=== PATIENT | male | born 1955 | race Caucasian/White ===

== ENCOUNTER 2023-01-07 08:42 | Outpatient (CLI) | payer BC, SELFPAY ==
[2023-01-07 19:34] LABS: Hematocrit 50.8 % (42.0-52.0); Hemoglobin 16.7 g/dL (14.0-18.0); Mean Corpuscular HGB Conc 32.9 g/dl (32-36); Mean Corpuscular Hemoglobin 32.4 pg (26-34); Mean Corpuscular Volume 98.4 fl (80-100); Mean Platelet Volume 10.7 fl (7.4-10.4); Platelet Count Result 234 k/mm3 (150-375); Red Blood Count 5.16 M/mm3 (4.6-6.20); Red Cell Distribution Width 12.7 % (11.5-14.5); White Blood Count 10.2 K/mm3 (4.5-10.0)
[2023-01-07 19:49] LABS: Alanine Aminotransferase 33 U/L (6-50); Albumin Level 4.4 g/dL (3.5-5.1); Alkaline Phosphatase 64 U/L (38-126); Anion Gap 7 mmol/L (8-16); Aspartate Amino Transferase 74 U/L (17-59); Bilirubin,Total 0.6 mg/dL (0.2-1.3); Blood Urea Nitrogen 14 mg/dL (9-20); Calcium 9.1 mg/dL (8.4-10.2); Carbon Dioxide 31 mmol/L (22-30); Chloride 99 mmol/L (98-107); Cholesterol 149 mg/dL (0-200); Estimated Glomerular Filt Rate > 60; Glucose 194 mg/dL (65-110); HDL Direct 38 mg/dL; Potassium 4.4 mmol/L (3.4-5.0); Sodium 137 mmol/L (137-145); Triglycerides 125 mg/dL (<150)
[2023-01-07 20:15] LABS: Prostate Specific Antigen 0.2 ng/mL (< OR = 4.0)
[2023-01-07 22:05] LABS: LDL Cholesterol Direct 83 mg/dL
== END 2023-01-07 08:43 | disposition home or self-care (01) ==
PROVIDERS: PCP Nurse Practitioner Adult Health; Visit Provider Nurse Practitioner Adult Health
DX: E11.9 Type 2 diabetes mellitus without complications (principal); Z12.5 Encounter for screening for malignant neoplasm of prostate
CPT/HCPCS: 36415; 80053; 80061; 84153; 85027; G0103

== ENCOUNTER 2023-03-03 16:58 | Emergency (ER) | payer MEDICARE, SELFPAY ==
[2023-03-03 17:15] VITALS: BP 180/69; PULSE 122; RESP 20; TEMP 39.2; O2SAT 97
--- NOTE | 2023-03-03 17:31 | ED.URI ---
HPI - URI/Sore Throat General Chief Complaint: Upper Respiratory Infection Stated Complaint: Fever/Body Ache Time Seen by Provider: 03/03/23 17:31 Source: patient, RN notes reviewed and old records reviewed Mode of arrival: ambulatory Limitations: no limitations History of Present Illness HPI Narrative: 67 year old male who presents to [facility] care with complaints of fever, body aches,sore throat, cough starting at 2000 last night. Patient reports that he has had fevers and has been taking Tylenol for his symptoms. Patient reports that they just returned from trip in [place] a few days ago. Patient reports that he has been COVID vaccinated and did have flu shot last year not yet this season. Patient reports that cough is dry has not had anything productive and denies any shortness of breath. MD elicited complaint: fever, cough, sore throat and other (body aches) Pain scale (0-10): 5 Able to tolerate fluids by mouth: Yes Treatments prior to arrival: acetaminophen Related Data Home Medications Medication Instructions Recorded Confirmed aspirin 81 mg tablet,delayed 81 mg PO DAILY 01/06/23 release atorvastatin 20 mg tablet 20 mg PO DAILY 01/06/23 01/06/23 dapagliflozin propanediol 10 mg 10 mg PO DAILY 01/06/23 tablet (Farxiga) esomeprazole magnesium 40 mg 40 mg PO DAILY 01/06/23 01/06/23 capsule,delayed release (Nexium) glimepiride 4 mg tablet 4 mg PO QAM 01/06/23 insulin glargine 100 unit/mL (3 50 unit subcut QPM 01/06/23 01/06/23 mL) subcutaneous pen (Basaglar KwikPen U-100 Insulin) metformin 500 mg tablet,extended 1,000 mg PO BID 01/06/23 01/06/23 release 24 hr pioglitazone 30 mg tablet 30 mg PO DAILY 01/06/23 tadalafil 20 mg tablet (Cialis) 20 mg PO DAILY PRN 01/06/23 Allergies Allergy/AdvReac Type Severity Reaction Status Date / Time Penicillins Allergy Unknown unknown Verified 01/06/23 13:58 Bee stings Allergy Severe Anaphylaxis Uncoded 01/06/23 13:59 Review of Systems Review of Systems: CONSTITUTIONAL:Reports malaise, chills, sweats, or fever. EYES: Denies visual changes, redness, or discharge. ENT: Reports rhinorrhea, congestion, sinus pain, no otalgia and positive for sore throat. CARDIOVASCULAR: Denies chest pain, palpitations, or edema. RESPIRATORY: Reports cough.? Denies dyspnea. GASTROINTESTINAL: Denies abdominal pain, nausea, vomiting, diarrhea SKIN: Denies rash or itching. MUSCULOSKELETAL: Reports myalgia. NEUROLOGIC: Denies headache. All systems reviewed & are unremarkable except as noted in HPI and below PMFSH Past Medical History Medical History Arthritis Diabetes Elevated cholesterol GERD (gastroesophageal reflux disease) Pancreatitis Family History Family History Father Hypertension Heart disease Social History Social History Smoking status: Never smoker Alcohol intake: never Substance use: never Lack of Transportation: No Lack of Food: Never True Current Housing: I Have Housing Concerned About Future Housing: No Difficulty Paying Gas/Electric Bills: No Difficulty Paying for Meds: No Currently Unemployed: No Education: High School Diploma/GED Difficulty w/ Childcare or Family Care: No Living arrangements: with family Gender identity (if verbalized by the patient): Male Agree to blood products: Yes Comments At time of signature, agree with nursing past medical, surgical, social and family history. There is no relevant family history pertinent to the presenting complaint Exam Narrative: GENERAL: Well-appearing, well-nourished, and in no acute distress. HEAD: Normocephalic EYES: PERRLA, conjunctivae clear ENT: Nares clear, turbinates edematous and erythematous, clear discharge. Mucous membranes moist. TM pearly stacy with dull light refle
--- NOTE | 2023-03-03 17:45 | PC.NURSE ---
PT DECLINED TYLENOL OFFERED FOR FEVER. STATES I CAN TAKE IT AT HOME. HAS BEEN TAKING TYLENOL SINCE LAST NIGHT 8PM
== END 2023-03-03 17:54 | disposition home or self-care (01) ==
PROVIDERS: Emergency Provider Registered Nurse; PCP Nurse Practitioner Adult Health
DX: J06.9 Acute upper respiratory infection, unspecified (principal); E11.9 Type 2 diabetes mellitus without complications; Z20.822 Contact with and (suspected) exposure to COVID-19
CPT/HCPCS: 87081; 87426; 87804; 87880; 99213; C9803; G0463

== ENCOUNTER 2025-03-22 08:45 | Outpatient (CLI) | payer BC, SELFPAY ==
--- OUTSIDE RECORDS SUMMARY | 2025-03-22 09:14 | XMS_ITS | Clinical Summary ---
Author Organization [facility] Address [address] [place] [address] Phone Care Team Providers Care Alodize Machine Helper Name Role Phone Sonia Hong MD Primary Care Provider Allergies Active Allergy Reactions Criticality Noted Date Comments Penicillins Other (see Comments) 10/09/2020 As an infant Medications insulin glargine (LANTUS) 100 UNIT/ML Solution 35 Units by Subcutaneous route nightly. Active Dapagliflozin Propanediol (FARXIGA) 5 MG Tablet Take 5 mg by mouth daily. Active pioglitazone (ACTOS) 30 MG Tablet Take 30 mg by mouth daily. Active glimepiride (AMARYL) 4 MG Tablet Take 4 mg by mouth every morning. Active traMADol (ULTRAM) 50 MG Tablet Take 50-100 mg by mouth. Every 4-6 hours as needed Active meloxicam (MOBIC) 7.5 MG Tablet Take 7.5 mg by mouth daily. Active Multiple Vitamins-Minera ls (ZINC PO) Take 300 mg by mouth daily. Active Multiple Vitamins-Minera ls (MULTI ADULT GUMMIES PO) Take 1 Tablet by mouth daily. Active HYDROcodone-aleksandar taminophen (NORCO) 7.5-325 MG Tablet Take 1-2 Tablets by mouth every 6 hours as needed (PAIN). 40 Tablet 1 Active aspirin EC (ECOTRIN) 325 MG Tablet Delayed Response Take 1 Tablet by mouth 2 times daily. 60 Tablet 1 Active famotidine (PEPCID) 20 MG TabletIndicatio ns:Stress Ulcer Prophylaxis Take 1 Tablet by mouth 2 times daily. Indications: Treatment to Prevent Stress Ulcers 60 Tablet 1 Active atorvastatin (LIPITOR) 20 MG Tablet Take 20 mg by mouth daily. 1 Active tadalafil (CIALIS) 20 MG Tablet Take 20 mg by mouth daily as needed. 1 Active Social History Tobacco Use Types Packs/Day Years Used Date Smoking Tobacco: Never Smokeless Tobacco: Never Alcohol Use Standard Drinks/Week Comments Yes 0 (1 standard drink = 0.6 oz pur e alcohol) rarely PHQ-2 Answer Date Recorded Total Score - Questions 1-9 0 10/24 Sex and Gender Information Value Date Recorded Sex Assigned at Not on file Legal Sex Male 8:16 AM CDT Gender Identity Not on file Sexual Orientation Not on file Last Filed Vital Signs Vital Sign Reading Time Taken Comments Blood Pressure 152/74 11/03/2020 7:18 AM CDT Pulse 77 11/03/2020 7:18 AM CDT Temperature 37 C (98.6 F) 11/03/2020 7:18 AM CDT Respiratory Rate 18 11/03/2020 7:18 AM CDT Oxygen Saturation 96% 11/03/2020 7:18 AM CDT Inhaled Oxygen Concentration - - Weight 104.3 kg (230 lb) 11/01/2020 5:01 PM CDT Height 180.3 cm (5' 11) 11/01/2020 5:01 PM CDT Body Mass Index 32.08 11/01/2020 5:01 PM CDT Plan of Treatment Health Maintenance Due Date Last Done Comments Hepatitis C Virus (HCV) Screening 1955 Cologuard 1998 Immunochemical Fecal Occult Blood 1998 Zoster Immunization (1 of 2) 12/23/2003 Respiratory Syncytial Virus (RSV) Immunization (Adult) (1 - Risk 60-74 years 1-dose series) 2013 Medicare Initial AWV G0438 05/26/2021 Colonoscopy 08/15/2023 08/14/2018 Colorectal Cancer Screening 08/15/2023 Influenza Immunization (#1) 01/24/202503/26, 04/03/2022, 01/26/2021, Additional history exists SARS-COV-2 Immunization (4 - 2025-26 season) 2025 03/20/2021, 08/29/2020, 08/01/2020 DTaP/Tdap/Td Immunization Discontinued 03/31/2017 TdaP Immunization Completed 03/31/2017 Pneumococcal Immunization (50+ years) Completed 02/01/2021, 01/28/2020 Pneumococcal Immunization Combined Discontinued 02/01/2021, 01/28/2020 Hepatitis B Immunization Aged Out No longer eligible based on patient's age to complete this topic Human Papillomavirus (HPV) Immunization Aged Out No longer eligible based on patient's age to complete this topic Meningococcal Immunization (ACWY) Aged Out No longer eligible based on patient's age to complete this topic Rotavirus Immunization Aged Out No lo nger eligible based on patient's age to complete this topic Medical Devices Implanted Type Area Display Fabricator Device Identifier Shelf Expiration Date Model / Serial / Lot Cement Biomet - [id number] Implanted:Qty : 2 on 11/01/2020 at [facility] IMPLANT Left: Knee [employer] 01/23/2025 [id number] / / [id number] Triathlon Cr Fem Comp 5510-F-601 - [id number] Implanted:Qty : 1 on 11/01/2020 at [facility] IMPLANT Left: Knee HOMA ALW 01/26/2024 [id number] / / [id number] Tri Ts Baseplate Size 6 - [id number] Implanted:Qty : 1 on 11/01/2020 at [facility] IMPLANT Left: Knee HOMA LAW 06/07/2025 [id number] / / [id number] Series A Pat Thn 34 3 Peg - [id number] Implanted:Qty : 1 on 11/01/2020 at [facility] IMPLANT Left: Knee BIOMET / ARTHROTEK 03/10/2025 [id number] / / [id number] Triathlon Cs Ins Size6 10mm 1151-I-154-E - [id number] Implanted:Qty : 1 on 11/01/2020 at [facility] IMPLANT Left: Knee HOMA LAW 08/17/2025 [id number] / / [id number] Explanted Type Area Display Fabricator Device Identifier Shelf Expiration Date Model / Serial / Lot Bone Pin 4 X 140mm Sterile (2pk) [id number] - [id number] Explanted:Qty: 1 on 11/01/2020 at [facility] IMPLANT Left: Knee HOMA LAW 04/26/2025 [id number] / / [id number] Law Femoral Tibial Checkpoint Kit [id number] - [id number] Explanted:Qty: 1 on 11/01/2020 at [facility] IMPLANT Left: Knee HOMA LAW 04/24/2025 [id number] / / [id number] Law Bone Pin 4 X 110mm (2pk) [id number] - [id number] Explanted:Qty: 1 on 11/01/2020 at [facility] IMPLANT Left: Knee HOMA LAW [id number] / / [id number] Insurance MEDICARE C GENERIC Advance Directives Documents on File Type Date Recorded Patient Hand Glass Cutter Expl anation Living Will 03/03/2015 7:55 AM LIVING ROLANDO L 03/01/15 * Full Code (Latest Code Status on File) Date Activated Date Inactivated Comments 02/28/2015 9:15 PM 03/02/2015 11:45 PM Full Code: FULL ARREST: Attempt Resuscitation/CPR and use intubation and mechanical ventilation as indicated. PRE-ARREST: Use all measures to stabilize patient. Care Teams Alodize Machine Helper Relationship Specialty Start Date End Date Sonia Hong MD [address] [place] [address] PCP - General Geriatric Medicine 07/09/19
--- OUTSIDE RECORDS SUMMARY | 2025-03-22 09:14 | XMS_ITS | Encounter Summary ---
Author Organization [facility] Address [address] [place] [address] Phone Care Team Providers Care Waxer Floor Name Role Phone Sonia Hong MD Primary Care Provider Reason for Referral * Radiology Services (Routine) - Closed Specialty Diagnoses / Procedures Referred By [facility] evangelista Referred To Contact Radiology Diagnoses Left knee pain, unspecified chronicity Preoperative testing Osteoarthritis of left knee, unspecified osteoarthritis type Procedures XR CHEST 2 VIEWS Margarito Morgan MD [address] [place] [address] Phone: tel: fax: Referral ID Status Reason Start Date Expiration Date Visits Re quested Visits Authorized [id number] Closed 10/09/2020 1 1 Encounter Details Date Type Department Care Team (Latest Contact Info) Description 10/09/2020 Transcribe Orders [facility] [address] [place] [address] Margarito Morgan MD [address] [place] [address] Left knee pain, unspecified chronicity (Primary Dx); Preoperative testing; Osteoarthritis of left knee, unspecified osteoarthritis type; Monitoring for anticoagulant use Social History Tobacco Use Types Packs/Day Years Used Date Smoking Tobacco: Never Smokeless Tobacco: Never Alcohol Use Standard Drinks/Week Comments Yes 0 (1 standard drink = 0.6 oz pur e alcohol) rarely Sex and Gender Information Value Date Recorded Sex Assigned at Not on file Legal Sex Male 8:16 AM CDT Gender Identity Not on file Sexual Orientation Not on file COVID-19 Exposure Response Date Recorded In the last month, have you been in contact with someone who was confirmed or suspected to have Coronavirus / COVID-19? No / Unsure 10/11/2020 11:37 AM CDT documented as of this encounter Plan of Treatment Not on file documented as of this encounter Results * (ABNORMAL) Urinalysis Microscopic If Indicated (10/11/2020 10:16 AM CDT) SPECIFIC GRAVITY 1.036(H) 1.003 - 1.035 10/11/2020 12:53 PM [facility] URINE PH 5.5 5.0 - 8.0 10/11/2020 12:53 PM [facility] WBC ESTERASE Negative Negative 10/11/2020 12:53 PM [facility] NITRITE Negative Negative 10/11/2020 12:53 PM [facility] PROTEIN, RANDOM URINE Negative Negative 10/11/2020 12:53 PM [facility] URINE GLUCOSE, QUAL 4+(A) Negative 10/11/2020 12:53 PM [facility] URINE KETONES Negative Negative 10/11/2020 12:53 PM [facility] UROBILINOGEN <2.0 <2.0 mg/dL 10/11/2020 12:53 PM [facility] URINE BILIRUBIN Negative Negative 12:53 PM [facility] URINE BLOOD Negative Negative idalia/ul 10/11/2020 12:53 PM [facility] URINALYSIS COLOR Yellow Yellow 10/12/19 12:53 PM [facility] URINALYSIS CLARITY Clear Clear 10/11/2020 12:53 PM [facility] DMH RENAL EPI CELLS 10/11/2020 12:53 PM [facility] URINE SPERM 10/11/2020 12:53 PM [facility] URINE TRICHOMONAS 10/11/2020 12:53 PM CDT [facility] URINE YEAST 10/11/2020 12:53 PM CDT [facility] Urine URINE SPECIMEN COLLECTION, CLEAN CATCH / Unknown Non-Phlebotomy Collection / Unknown 10/11/2020 10:16 AM CDT 10/11/2020 10:16 AM CDT Margarito Morgan MD URINE ORDERABLES Final Result Performing Organization Address [facility] Co de Phone Number [address] [phone] * Protime (PT) (Prothrombin Time) (10/11/2020 10:16 AM CDT) PROTIME-PATIENT 10.5 9.3 - 11.6 sec 10/11/2020 1:14 PM T [facility] Comment: Protime testing is performed using a recombinant human thromboplastin (Innovin) with an KATELYN approximating 1.0. INR 1.0 0.9 - 1.1 10/11/2020 1:14 PM [facility] Comment: Recommended Ranges: Standard oral anticoagulant INR: 2.0 - 3.0 High dose therapy INR: 2.5 - 3.5 Blood Venipuncture / Unknown 10/11/2020 10:16 AM CDT 10/11/2020 10:16 AM CDT Margarito Morgan MD HEMATOLOGY ORDERABLES Final Re sult Performing Organization Address [facility] Co de Phone Number [address] [address] * (ABNORMAL) Hemoglobin A1C w/ Estimated Glucose (10/11/2020 10:16 AM CDT) HGB-A1C 7.3(H) 3.8 - 5.6 % 10/11/2020 1:22 PM T [facility] Blood Venipuncture / Unknown 10/11/2020 10:16 AM CDT 10/11/2020 10:16 AM CDT Narrative [facility] - 10/11/2020 1:22 PM CDT Per ADA recommendations, HbA1c <7% is the goal for glycemic control, >8% suggests additional action needed. ([employer] Dimension Wiggins HbA1c method) This assay measures any hemoglobin variants that are glycated at the beta-chain N-terminus and have epitopes identical to that of HbA1c. Hemoglobins D, C, E and S do not interfere with this method. Samples containing >10% Hemoglobin F will yield lower than expected results. The effect of other variant hemoglobins has not been assessed. On 12/06/19 - Assay was updated to meet future National Glycohemoglobin Standardization (NGSP) program certification. Reference ranges have been updated. us Margarito Morgan MD CHEMISTRY ORDERABLES Final Res ult Performing Organization Address [facility] Co de Phone Number [address] [phone] * Culture, MRSA Screen (10/11/2020 10:16 AM CDT) CULTURE RESULTS NO MRSA ISOLATED AFTER 1 DAY 10/12/2020 2:25 PM CDT [facility] Culture NASAL STRUCTURE / Unknown Non-Phlebotomy Collection / Unknown 10/11/2020 10:16 AM CDT 10/11/2020 10:16 AM CDT Margarito Morgan MD MICROBIOLOGY - GENERAL ORDERAB LES Final Result Performing Organization Address [facility] Co de Phone Number [address] [address] * (ABNORMAL) CMP (Comprehensive Metabolic Panel) (10/11/2020 10:16 AM CDT) SODIUM 139 133 - 145 mmol/L 10/11/2020 12:54 PM CDT [facility] POTASSIUM 4.6 3.5 - 5.1 mmol/L 10/11/2020 12:54 PM CDT [facility] CHLORIDE 107 96 - 108 mmol/L 10/11/2020 12:54 PM [facility] CO2, VENOUS 24 21 - 32 mmol/L 10/11/2020 12:54 PM [facility] ANION GAP 12.6 10.0 - 20.0 mmol/L 10/11/2020 12:54 PM [facility] GLUCOSE 124(H) 80 - 115 mg/dL 10/11/2020 12:54 PM [facility] BUN 18 6 - 19 mg/dL 10/11/2020 12:54 PM [facility] CREATININE, BLOOD 0.80 0.50 - 1.30 mg/dL 10/11/2020 12:54 PM [facility] BUN/CREATININE RATIO 23(H) 12 - 20 ratio 10/11/2020 12:54 PM [facility] TOTAL PROTEIN 7.0 6.0 - 8.2 g/dL 10/11/2020 12:54 PM [facility] ALBUMIN 4.1 3.4 - 4.8 g/dL 10/11/2020 12:54 PM [facility] CALCIUM 8.9 8.8 - 10.0 mg/dL 10/11/2020 12:54 PM [facility] T BILI 0.7 0.0 - 1.0 mg/dL 10/11/2020 12:54 PM [facility] SGOT (AST) 20 0 - 37 U/L 10/11/2020 12:54 PM [facility] SGPT (ALT) 37 12 - 55 U/L 10/11/2020 12:54 PM [facility] ALKALINE PHOSPHATASE 70 39 - 117 U/L 10/11/2020 12:54 PM [facility] GFR, EST. NONAFRICAN >60 10/11/2020 12:54 PM [facility] Comment: Reference interval for MDRD GFR: GFR >=60: Satisfactory kidney function GFR <60: Chronic kidney disease GFR <15: Kidney failure Estimated GFR may be less reliable in patients >70yr, women, patients with serious comorbid conditions, or patients with extremes of body size, muscle mass, or nutritional status. Revised 08/19/07 (National Kidney Disease Education Program) GFR, EST. >60 >=60 021 12:54 PM CDT [facility] Comment: Reference interval for MDRD GFR: GFR >=60: Satisfactory kidney function GFR <60: Chronic kidney disease GFR <15: Kidney failure Estimated GFR may be less reliable in patients >70yr, women, patients with serious comorbid conditions, or patients with extremes of body size, muscle mass, or nutritional status. Revised 08/19/07 (National Kidney Disease Education Program) Blood Venipuncture / Unknown 10/11/2020 10:16 AM CDT 10/11/2020 10:16 AM CDT Narrative [facility] - 10/11/2020 12:54 PM CDT Venipuncture should occur prior to sulfasalazine and/or sulfapyridine administration due to the potential for falsely depressed results for ALT and AST. Glucose can be falsely depressed after administration of sulfasalazine, and falsely elevated with administration of sulfapyridine. Margarito Morgan MD CHEMISTRY ORDERABLES Final Res ult Performing Organization Address City/[facility]/ZIP Co de Phone Number [address] [address] * APTT (PTT) (10/11/2020 10:16 AM CDT) PTT 25 24 - 36 sec 10/11/2020 1:14 PM CDT [facility] Blood Venipuncture / Unknown 10/11/2020 10:16 AM CDT 10/11/2020 10:16 AM CDT Margarito Morgan MD HEMATOLOGY ORDERABLES Final Re sult Performing Organization Address [facility]/ZIP Co de Phone Number [address] [address] * XR CHEST 2 VIEWS (10/11/2020 10:16 AM CDT) Anatomical Region Laterality Modality Chest N/A Computed Radiogr aphy Narrative 10/11/2020 10:16 AM CDT EXAMINATION: XR CHEST 2 VIEWS N/A INDICATIONS: Pain in left knee. Left knee pain, preoperative testing, osteoarthritis of the left knee, diabetes COMPARISON: This examination is compared to chest x-rays of January 18, 2016 and March 10, 2015. TECHNIQUE: Two views the chest include PA and lateral. FINDINGS: The heart size and mediastinum appear normal. The lungs appear clear. Scattered calcified granulomata can be seen. Degenerative changes of the thoracic spine can be seen. IMPRESSION No acute cardiopulmonary disease. Dictation location [place] Electronically signed by: THIERRY RAMIREZ MD Date of Signature: 10/11/2020 10:16:28 Procedure Note Thierry Ramirez MD - 10/11/2020 EXAMINATION: XR CHEST 2 VIEWS N/A INDICATIONS: Pain in left knee. Left knee pain, preoperative testing, osteoarthritisof the left knee, diabetes COMPARISON: This examination is compared to chest x-rays of January 18, 2016 andMarch 10, 2015. TECHNIQUE: Two views the chest include PA and lateral. FINDINGS: The heart size and mediastinum appear normal. The lungs appear clear. Scattered calcified granulomata can be seen. Degenerative changes of the thoracic spine can be seen. IMPRESSION No acute cardiopulmonary disease. Dictation [facility] Electronically signed by: THIERRY RAMIREZ MD Date of Signature: 10/11/2020 10:16:28 Margarito Morgan MD IMG DIAGNOSTIC ORDERABLES Cheryl l Result documented in this encounter Visit Diagnoses Diagnosis Left knee pain, unspecified chronicity- Primary Preoperative testing Preoperative examination, unspecified Osteoarthritis of left knee, unspecified osteoarthritis type Monitoring for anticoagulant use Encounter for long-term (current) use of anticoagulants Left knee pain, unspecified chronicity Preoperative testing Preoperative examination, unspecified Osteoarthritis of left knee, unspecified osteoarthritis type Monitoring for anticoagulant use Encounter for long-term (current) use of anticoagulants documented in this encounter Care Teams Waxer Floor Relationship Specialty Start Date End Date Sonia Hong MD [address] [place] [address] PCP - General Geriatric Medicine 07/09/19 documented as of this encounter
[2025-03-22 19:13] LABS: Alanine Aminotransferase 29 U/L (6-50); Albumin Level 4.6 g/dL (3.5-5.1); Alkaline Phosphatase 66 U/L (38-126); Anion Gap 7 mmol/L (4-12); Aspartate Amino Transferase 80 U/L (17-59); Bilirubin,Total 0.8 mg/dL (0.2-1.3); Blood Urea Nitrogen 17 mg/dL (9-20); Calcium 9.2 mg/dL (8.4-10.2); Carbon Dioxide 28 mmol/L (22-30); Chloride 101 mmol/L (98-107); Cholesterol 167 mg/dL (0-200); Estimated Glomerular Filt Rate > 60; Glucose 135 mg/dL (65-110); HDL Direct 49 mg/dL; Potassium 4.9 mmol/L (3.4-5.0); Sodium 136 mmol/L (137-145); Total Protein 7.2 g/dL (6.3-8.2); Triglycerides 92 mg/dL (<150)
[2025-03-22 19:15] LABS: Hematocrit 50.1 % (42.0-52.0); Hemoglobin 16.2 g/dL (14.0-18.0); Immature Granulocyte Percent A 0.2 % (0-0.5); Lymphocytes Absolute Auto 6.56 K/mm3 (0.9-3.2); Mean Corpuscular HGB Conc 32.3 g/dl (32-36); Mean Corpuscular Hemoglobin 31.6 pg (26-34); Mean Corpuscular Volume 97.7 fl (80-100); Nucleated Red Blood Cells Absolute Auto 0.000 K/mm3 (0.0-0.012); Nucleated Red Blood Cells Perc 0.0 % (0.0-0.2); Platelet Count Result 218 k/mm3 (150-375); Red Blood Count 5.13 M/mm3 (4.6-6.20); White Blood Count 11.1 K/mm3 (4.5-10.0)
[2025-03-22 20:02] LABS: Prostate Specific Antigen 0.3 ng/mL (< OR = 4.0)
[2025-03-22 20:24] LABS: Vitamin B12 > 1000.0 pg/mL (239-931)
[2025-03-25 10:08] LABS: Free Testosterone (Direct) 6.5 pg/mL (6.6-18.1)
== END 2025-03-22 08:46 | disposition home or self-care (01) ==
PROVIDERS: PCP Family Medicine; Visit Provider Family Medicine
DX: E11.9 Type 2 diabetes mellitus without complications (principal); K21.9 Gastro-esophageal reflux disease without esophagitis; Z87.19 Personal history of other diseases of the digestive system; Z00.00 Encounter for general adult medical examination without abnormal findings; Z12.5 Encounter for screening for malignant neoplasm of prostate
CPT/HCPCS: 36415; 80053; 80061; 82172; 82306; 82607; 84153; 84402; 84403; 85025; G0103

== ENCOUNTER 2025-04-14 10:09 | Outpatient (CLI) | payer BC, SELFPAY ==
--- OUTSIDE RECORDS SUMMARY | 2025-04-14 12:05 | XMS_ITS | Clinical Summary ---
Author Organization [facility] Address [address] [place] [address] Phone Care Team Providers Care White Metal Corrosion Proofer Name Role Phone Sonia Hong MD Primary [...] Comments Hepatitis C Virus (HCV) Screening 1955 Varicella Immunization (1 of 2 - 13+ 2-dose series) 1966 Cologuard 1998 Immunochemical Fecal Occult Blood 1998 Respiratory Syncytial Virus (RSV) Immunization (Adult) (1 - Risk 50-74 years 1-dose series) 12/23/2003 Zoster Immunization (1 of 2) 12/23/2003 Medicare Initial AWV G0438 05/26/2021 Colonoscopy 08/15/2023 08/14/2018 Colorectal Cancer Screening 08/15/2023 Influenza Immunization (#1) 01/24/202503/26, 04/03/2022, 01/26/2021, Additional history exists SARS-COV-2 Immunization ( season) 2025 03/20/2021, 08/29/2020, 08/01/2020 DTaP/Tdap/Td Immunization [...] this topic Medical Devices Implanted Type Area Pump Attendant Device Identifier Shelf Expiration Date Model / Serial / Lot Cement Biomet - [id number] Implanted:Qty : 2 on 11/01/[address] [facility]PLANT Left: Knee [employer] 01/23/2025 [id number] / / [id number] Triathlon Cr Fem Comp 5510-F-601 - [id number] Implanted:Qty : 1 on 11/01/[address] [facility] [place] IMPLANT Left: Knee [employer] 01/26/2024 [id number] / / [id number] Tri Ts Baseplate Size 6 - [id number] Implanted:Qty : 1 on 11/01/[address] [facility]PLANT Left: Knee [employer] 06/07/2025 [id number] / / [id number] Series A Pat Thn 34 3 Peg - [id number] Implanted:Qty : 1 on 11/01/[address] [facility]PLANT Left: Knee BIOM[employer] / [id number] 03/10/2025 [id number] / / [id number] X3 Triathlon Cs Ins Size6 10mm 2023-Q-787-E - [id number] Implanted:Qty : 1 on 11/01/[address] [facility] IMPLANT Left: Knee [employer] 08/17/2025 [id number] / / [id number] Explanted Type Area Pump Attendant Device Identifier Shelf Expiration Date Model / Serial / Lot Bone Pin 4 X 140mm Sterile (2pk) [id number] - [id number] Explanted:Qty: 1 on 11/01/[address] [facility] IMPLANT Left: Knee [employer] 04/26/2025 [id number] / / [id number] Law Femoral Tibial Checkpoint Kit [id number] - [id number] Explanted:Qty: 1 on 11/01/[address] [facility] IMPLANT Left: Knee [employer] 04/24/2025 [id number] / / [id number] Law Bone Pin 4 X 110mm (2pk) [id number] - [id number] Explanted:Qty: 1 on 11/01/[address] [facility] IMPLANT Left: Knee [employer] [id number] / / [id number] Insurance MEDICARE C GENERIC Advance Directives Documents on File Type Date Recorded Patient Photograph Mounter Expl anation Living Will 03/03/2015 7:55 AM LIVING ROLANDO L 03/01/15 * Full Code (Latest Code Status on File) Date Activated Date Inactivated Comments 02/28/2015 9:15 PM 03/02/2015 11:45 PM Full Code: FULL ARREST: Attempt Resuscitation/CPR and use intubation and mechanical ventilation as indicated. PRE-ARREST: Use all measures to stabilize patient. Care Teams White Metal Corrosion Proofer Relationship Specialty Start Date End Date Sonia Hong MD [address] [place] [address] PCP - General Geriatric Medicine 07/09/19
--- OUTSIDE RECORDS SUMMARY | 2025-04-14 12:06 | XMS_ITS | Encounter Summary ---
Author Organization [facility] Address [address] [place] [address] Phone Care Team Providers Care Associate Professor Name Role Phone Sonia Hong MD Primary Care Provider Reason for Referral * Radiology Services (Routine) - Closed Specialty Diagnoses / Procedures Referred By [employer] evangelista Referred To Contact Radiology Diagnoses Left knee pain, unspecified chronicity Preoperative testing Osteoarthritis of left knee, unspecified osteoarthritis type Procedures XR CHEST 2 VIEWS Margarito Morgan MD [address] [place] [address] Phone: tel: fax: Referral ID Status Reason Start Date Expiration Date Visits Re quested Visits Authorized [id number] Closed 10/09/2020 1 1 Encounter Details Date Type Department Care Team (Latest Contact Info) Description 10/09/2020 Transcribe Orders [facility] [address] [place] [address] Margarito Morgan MD [address] [place] [address] Left knee pain, unspecified chronicity [...] AM CDT documented as of this encounter Functional Status * Height and Weight Question Answer Date of Assessment Author Height 71 10/09/2020 10:44 AM SULMAT Aleyda Johnson RN Weight 3680 10/09/2020 10:44 AM CDT Aleyda Johnson RN BMI (Calculated) 32.1 10/09/2020 10:44 AM Aleyda Escobedo RN * BSA (Calculated - sq m) Answer Date of Assessment Author 2.29 10/09/2020 10:44 AM CDT Jennifer Johnson RN * STOP BANG Assessment Question Answer Date of Assessment Author STOP BANG Assessment 1-->Patient snores;1-->Patient age > 50 years;1-->Patient neck circumference > 16 (female), 17 (male);1-->Patient gender, male;1-->Patient has high blood pressure;1-->Patient tired, fatigued, sleepy during the day 10/09/2020 10:44 AM Aleyda Escobedo RN STOP BANG Total Score 6 10/09/2020 10:44 AM CDT Aleyda Johnson RN * Question Answer Date of Assessment Author BMI (Calculated) 32.1 10/09/2020 10:44 AM CDAleyda Bennett RN * STOP BANG Assessment Question Answer Date of Assessment Author STOP BANG Assessment 1-->Patient snores;1-->Patient age > 50 years;1-->Patient neck circumference > 16 (female), 17 (male);1-->Patient gender, male;1-->Patient has high blood pressure;1-->Patient tired, fatigued, sleepy during the day 10/09/2020 10:44 AM CDAleyda Bennett RN STOP BANG Total Score 6 10/09/2020 10:44 AM CDT Aleyda Johnson RN documented as of this encounter Mental Status * Question Answer Entry Date Author Weight 3680 10/09/2020 10:44 AM CDT Aleyda Johnson RN documented in this encounter Plan of Treatment Not on file documented as of this encounter Results * (ABNORMAL) Urinalysis Microscopic If Indicated (10/11/2020 10:16 AM CDT) SPECIFIC GRAVITY 1.036(H) 1.003 - 1.035 10/11/2020 12:53 PM [facility] URINE PH 5.5 5.0 - 8.0 10/11/2020 12:53 PM [facility] WBC ESTERASE Negative Negative 10/11/2020 12:53 PM [facility] NITRITE Negative Negative 10/11/2020 12:53 PM [facility] PROTEIN, RANDOM URINE Negative Negative 10/11/2020 12:53 PM [facility] URINE GLUCOSE, QUAL 4+(A) Negative 10/11/2020 12:53 PM [facility] URINE KETONES Negative Negative 10/11/2020 12:53 PM [facility] UROBILINOGEN <2.0 <2.0 mg/dL 10/11/2020 12:53 PM [facility] URINE BILIRUBIN Negative Negative 12:53 PM [facility] URINE BLOOD Negative Negative idalia/ul 10/11/2020 12:53 PM [facility] URINALYSIS COLOR Yellow Yellow 10/12/19 12:53 PM [facility] URINALYSIS CLARITY Clear Clear 10/11/2020 12:53 PM [facility] DMH RENAL EPI CELLS 10/11/2020 12:53 PM [facility] URINE SPERM 10/11/2020 12:53 PM [facility] URINE TRICHOMONAS 10/11/2020 12:53 PM [facility] URINE YEAST 10/11/2020 12:53 PM [facility] Urine URINE SPECIMEN COLLECTION, CLEAN CATCH / Unknown Non-Phlebotomy Collection / Unknown 10/11/2020 10:16 AM CDT 10/11/2020 10:16 AM CDT Margarito Morgan MD URINE ORDERABLES Final Result Performing Organization Address [facility] Co de Phone Number [address] [phone] * Protime (PT) (Prothrombin Time) (10/11/2020 10:16 AM CDT) PROTIME-PATIENT 10.5 9.3 - 11.6 sec 10/11/2020 1:14 PM CDT [facility] Comment: Protime testing is performed using a recombinant human thromboplastin (Innovin) with an KATELYN approximating 1.0. INR 1.0 0.9 - 1.1 10/11/2020 1:14 PM T [facility] Comment: Recommended Ranges: Standard oral anticoagulant INR: 2.0 - 3.0 High dose therapy INR: 2.5 - 3.5 Blood Venipuncture / Unknown 10/11/2020 10:16 AM CDT 10/11/2020 10:16 AM CDT Margarito Morgan MD HEMATOLOGY ORDERABLES Final Re sult Performing Organization Address [facility] Co de Phone Number [address] [address] * (ABNORMAL) Hemoglobin A1C w/ Estimated Glucose (10/11/2020 10:16 AM CDT) HGB-A1C 7.3(H) 3.8 - 5.6 % 10/11/2020 1:22 PM T [facility] Blood Venipuncture / Unknown 10/11/2020 10:16 AM CDT 10/11/2020 10:16 AM CDT [facility] - 10/11/2020 1:22 PM CDT Per ADA recommendations, HbA1c <7% is the goal for glycemic control, >8% suggests additional action needed. ([employer]ension Hamilton HbA1c method) This assay measures any hemoglobin [...] program certification. Reference ranges have been updated. Margarito Morgan MD CHEMISTRY ORDERABLES Final Res ult Performing Organization Address City/[facility]/ZIP Co de Phone Number [address] [address] * Culture, MRSA Screen (10/11/2020 10:16 AM CDT) CULTURE RESULTS NO MRSA ISOLATED AFTER 1 DAY 10/12/2020 2:25 PM CDT [facility] Culture NASAL STRUCTURE / Unknown Non-Phlebotomy Collection / Unknown 10/11/2020 10:16 AM CDT 10/11/2020 10:16 AM CDT Margarito Morgan MD MICROBIOLOGY - GENERAL ORDERAB LES Final Result Performing Organization Address [facility]/ZIP Co de Phone Number [address] [address] * (ABNORMAL) CMP (Comprehensive Metabolic Panel) (10/11/2020 10:16 AM CDT) SODIUM 139 133 - 145 mmol/L 10/11/2020 12:54 PM CDT [facility] POTASSIUM 4.6 3.5 - 5.1 mmol/L 10/11/2020 12:54 PM CDT [facility] CHLORIDE 107 96 - 108 mmol/L 10/11/2020 12:54 PM CDT [facility] CO2, VENOUS 24 21 - 32 mmol/L 10/11/2020 12:54 PM CDT [facility] ANION GAP 12.6 10.0 - 20.0 mmol/L 10/11/2020 12:54 PM [facility] GLUCOSE 124(H) 80 - 115 mg/dL 10/11/2020 12:54 PM [facility] BUN 18 6 - 19 mg/dL 10/11/2020 12:54 PM [facility] CREATININE, BLOOD 0.80 0.50 - 1.30 mg/dL 10/11/2020 12:54 PM [facility] BUN/CREATININE RATIO 23(H) 12 - 20 ratio 10/11/2020 12:54 PM [facility] TOTAL PROTEIN 7.0 6.0 - 8.2 g/dL 10/11/2020 12:54 PM [facility] ALBUMIN 4.1 3.4 - 4.8 g/dL 10/11/2020 12:54 PM [facility] CALCIUM 8.9 8.8 - 10.0 mg/dL 10/11/2020 12:54 PM [facility] T BILI 0.7 0.0 - 1.0 mg/dL 10/11/2020 12:54 PM [facility] SGOT (AST) 20 0 - 37 U/L 10/11/2020 12:54 PM [facility] SGPT (ALT) 37 12 - 55 U/L 10/11/2020 12:54 PM [facility] ALKALINE PHOSPHATASE 70 39 - 117 U/L 10/11/2020 12:54 PM [facility] GFR, EST. NONAFRICAN >60 10/11/2020 12:54 PM [facility] Comment: Reference interval for MDRD GFR: GFR >=60: Satisfactory kidney function GFR <60: Chronic kidney disease GFR <15: Kidney failure Estimated GFR may be less reliable in patients >70yr, women, patients with serious comorbid conditions, or patients with extremes of body size, muscle mass, or nutritional status. Revised 08/19/07 (National Kidney Disease Education Program) GFR, EST. >60 >=60 021 12:54 PM [facility] Comment: Reference interval for MDRD GFR: [...] AM CDT 10/11/2020 10:16 AM CDT Narrative [facility] - 10/11/2020 12:54 PM CDT Venipuncture should occur prior to sulfasalazine and/or sulfapyridine administration due to the potential for falsely depressed results for ALT and AST. Glucose can be falsely depressed after administration of sulfasalazine, and falsely elevated with administration of sulfapyridine. Margarito Morgan MD CHEMISTRY ORDERABLES Final Res ult Performing Organization Address [facility]/ZIP Co de Phone [place] [address] * APTT (PTT) (10/11/2020 10:16 AM CDT) PTT 25 24 - 36 sec 10/11/2020 1:14 PM CDT [facility] Blood Venipuncture / Unknown 10/11/2020 10:16 AM CDT 10/11/2020 10:16 AM CDT Margarito Morgan MD HEMATOLOGY ORDERABLES Final Re sult Performing Organization Address [facility]/ZIP Co de Phone Number [address] [address] * XR CHEST 2 VIEWS (10/11/2020 10:16 [...] IMPRESSION No acute cardiopulmonary disease. Dictation location [place] Electronically signed by: THIERRY RAMIREZ MD Date [...] IMPRESSION No acute cardiopulmonary disease. Dictation location [place] Electronically signed by: THIERRY RAMIREZ MD Date [...] anticoagulants documented in this encounter Care Teams Associate Professor Relationship Specialty Start Date End Date Sonia Hong MD [address] [place] [address] PCP - General Geriatric Medicine 07/09/19 documented as of this encounter
[2025-04-14 20:47] LABS: Hepatitis B Surface Antigen Negative (Negative)
[2025-04-14 20:53] LABS: HAV RESULT Negative (Negative); Hepatitis B Core IgM Result Negative (Negative)
== END 2025-04-14 10:10 | disposition home or self-care (01) ==
LOC: ANHBWCLAB 10:09
PROVIDERS: PCP Family Medicine; Visit Provider Family Medicine
DX: R74.01 Elevation of levels of liver transaminase levels (principal)
CPT/HCPCS: 36415; 80074

== ENCOUNTER 2025-04-15 07:55 | Outpatient (CLI) | payer MEDICARE, SELFPAY ==
--- NOTE | ~2025-04-15 | US_ITS ---
ULTRASOUND ABDOMEN LIMITED (RIGHT UPPER QUADRANT) Clinical History: R74.01 - Elevation of levels of liver transaminase levels Comparison: None Technique: Right upper quadrant sonography Findings: Liver: Enlarged. Echogenic. No intrahepatic biliary ductal dilatation. Normal hepatopedal flow main portal vein. Common Duct: Normal caliber. 5 mm. Gallbladder: No stones. No wall thickening. No pericholecystic fluid. Pancreas: Obscured by bowel gas. IMPRESSION: 1. Hepatomegaly, with steatosis and/or hepatocellular disease. Reviewed, dictated and finalized at location R. GUIDE
--- OUTSIDE RECORDS SUMMARY | 2025-04-15 08:01 | XMS_ITS | Clinical Summary ---
Author Organization [facility] Address [address] [place] [address] Care Team Providers Care Critical Power Install Technician Name Role Phone Arron Simons MD Unavailable [phone] Jose Arango MD Primary Care Provider [phone] Allergies Active Allergy Reactions Criticality Noted Date Comments Bee Venom Unknown 11/07/2016 Penicillin G Unknown 02/16/2015 Penicillins Unknown,Other (see comment) 017 As an Medications aspirin EC (ECOTRIN) 81 MG tablet Take 1 tablet (81 mg total) by mouth daily. Active EPINEPHrine (EPIPEN 2-MELO) 0.3 MG/0.3ML injectionIndicat ions:Poison wilmer dermatitis EpiPen 2-Melo 0.3 MG/0.3ML Injection Solution [id number] 1 each 020 Active famotidine 20 MG tablet Take 1 tablet (20 mg total) by mouth 2 (two) times daily. 021 Active atorvastatin (LIPITOR) 20 MG tabletIndication s:Hyperlipidemia , unspecified hyperlipidemia type TAKE 1 TABLET BY MOUTH EVERY DAY 90 tablet 023 Active tadalafil (CIALIS) 20 MG tabletIndication s:Erectile dysfunction, unspecified erectile dysfunction type TAKE 1 TABLET BY MOUTH EVERY DAY NEEDED 18 tablet 4 023 Active ONETOUCH ULTRA test stripIndications :Type 2 diabetes mellitus without complication, with long-term current use of insulin ([facility]) USE TO TEST BLOOD SUGAR TWICE A DAY 150 strip 5 023 Active glimepiride (AMARYL) 4 MG tabletIndication s:Type 2 diabetes mellitus without complication, with long-term current use of insulin (CMS/HCC HHS/HCC) Take 1 tablet (4 mg total) by mouth 2 (two) times daily before meals. 180 tablet 3 024 Active insulin glargine (BASAGLAR KWIKPEN) 100 UNIT/ML injection (PEN)Indications :Type 2 diabetes mellitus without complication, with long-term current use of insulin (CMS/HCC HHS/HCC) INJECT 26 UNITS SUBCUTANEOUSLY every morning 024 Active pioglitazone (ACTOS) 30 MG tabletIndication s:Type 2 diabetes mellitus without complication, with long-term current use of insulin (CMS/HCC HHS/HCC) TAKE 1 TABLET BY MOUTH EVERY DAY 90 tablet 3 025 Active FARXIGA 10 MG tabletIndication s:Type 2 diabetes mellitus without complication, with long-term current use of insulin (CMS/HCC HHS/HCC) TAKE 1 TABLET BY MOUTH EVERY DAY IN THE MORNING 90 tablet 3 025 Active Continuous Glucose Sensor (FREESTYLE YANNA 3 PLUS SENSOR) MiscIndications: Type 2 diabetes mellitus without complication, with long-term current use of insulin (CMS/HCC HHS/HCC) CHANGE SENSOR EVERY 15 DAYS 2 each 3 025 Active Insulin Pen Needle (B-D UF III MINI PEN NEEDLES) 31G X 5 MM MiscIndications: Type 2 diabetes mellitus without complication, with long-term current use of insulin (CMS/HCC HHS/HCC) 1 each by Does not apply route daily. 100 each 3 025 Active metFORMIN ER (GLUCOPHAGE-XR) 500 MG 24 hr tabletIndication s:Type 2 diabetes mellitus without complication, with long-term current use of insulin (CMS/HCC HHS/HCC) TAKE 2 TABLETS BY MOUTH TWICE A DAY WITH MEALS 360 tablet 3 025 Active Insulin Pen Needle (B-D UF III MINI PEN NEEDLES) 31G X 5 MM MiscIndications: Type 2 diabetes mellitus without complication, with long-term current use of insulin (CMS/HCC HHS/HCC) 1 each by Does not apply route daily. 100 each 3 024 2024 Discontinued(R eorder) metFORMIN ER (GLUCOPHAGE-XR) 500 MG 24 hr tabletIndication s:Type 2 diabetes mellitus without complication, with long-term current use of insulin ([facility]) TAKE 2 TABLETS BY MOUTH TWICE A DAY WITH MEALS 360 tablet 3 024 2024 Discontinued Active Problems Problem Noted Date Diagnosed Date Dyslipidemia 06/08/2018 Type 2 diabetes mellitus wit hout complication, with long-term current use of insulin 05/15/2015 Resolved Problems Problem Noted Date Diagnosed Date Resolved Date Screening for malignant neoplasm of colon 06/08/2018 02/04/2020 Encounters Date Type Department Care Team Description 03/21/2025 8:40 AM CDT Office Visit [facility] Endocr[facility] [address] [phone] Toyin Recinos MD Type 2 Diabetes 03/21/2025 Results Follow-Up [facility] [address] [phone] Toyin Recinos MD A1C (BACK OFFICE), ALBUMIN URINE RANDOM W/CREATININE 03/21/2025 Travel 02/16/2025 Telephone [facility] [address] [phone] Toyin Recinos MD Refill Request (Early fill or requesting 2 sensors ) from Last 3 Months Immunizations Immunization Administration Dates Next Due Fluad influenza vaccine, Carlitos drivalent (aIIV4), Inactivated, adjuvanted, preservative free, 0.5 mL,IM use 04/16/2019 Fluzone High Dose - >Age 65 (Prefilled Syringe) 01/26/2021,03/24/2020,04/16/2019 Influenza Adult (Generic) 04/11/2023,04/03/2022, 03/08/2018 MODERNA COVID-19 (BUSINESS TAXES SPECIALIST ANGELA CHRISSIE), MRNA, LNP-S, PF, 50 MCG/ 0.25 ML DOSE 03/20/2021 Pneumococcal (Pneumovax 23) 02/01/2021 Pneumococcal (Prevnar 13) 01/28/2020 Tdap (Generic) 03/31/2017 Family History Medical History Relation Comments Arthritis Father Early Father Heart Attack Father decs'd age 58 Heart Disease Father Relation Status Comments Brother 1 Alive Brother 2 Alive Father Mother Alive Sister 1 Alive Sister 2 Alive Social History Tobacco Use Types Packs/Day Years Used Date Smoking Tobacco: Never Smokeless Tobacco: Never Tobacco Cessation:Counseling Given: Not Answered Alcohol Use Standard Drinks/Week Comments Never 0 (1 standard drink = 0.6 oz pur e alcohol) PHQ-2 Answer Date Recorded Patient Health Questionnaire-2 Score 0 03/21/2025 Sex and Gender Information Value Date Recorded Sex Assigned at Not on file Legal Sex Male 11:10 AM CDT Gender Identity Not on file Sexual Orientation Not on file Last Filed Vital Signs Vital Sign Reading Time Taken Comments Blood Pressure 135/85 03/21/2025 9:01 AM CDT Pulse 62 03/21/2025 9:01 AM CDT Temperature 36.1 C (97 F) 09/06/2024 10:25 AM CDT Respiratory Rate 18 10/12/2021 11:1 7 AM CDT Oxygen Saturation 99% 03/21/2025 9:01 AM CDT Inhaled Oxygen Concentration - - Weight 103.1 kg (227 lb 3.2 oz) 03/21/2025 9:01 AM CDT Height 182.9 cm (6') 03/21/2025 9:01 AM CDT Body Mass Index 30.81 03/21/2025 9:01 AM CDT Plan of Treatment Upcoming Encounters Date Type Department Care Team (Late st Contact Info) Description 04/25/2025 3:20 PM SUPERVISOR GRAIN [employer] YE[employer] PLANTS Office Visit [facility] Family & Internal Medicine - [address] [phone] Sonia Hong MD [address] [place] [address] 09/20/2025 8:40 AM CDT Office Visit [facility] Diabetes and Endocrinology - [address] [phone] Toyin Recinos MD [address] [place] [address] [phone] Health Maintenance Due Date Last Done Comments Kidney Health Evaluation 1955 Diabetes: Retinopathy Eye Exam 12/23/1971 Hepatitis C 12/23/1971 Zoster Vaccines (1 of 2) 12/23/2003 RSV Immunization or 60+ Years (1 - Risk 60-74 years 1-dose series) 2013 COVID-19 Vaccine ( season) 2025 04/11/2023, 04/03/2022, 10/15/2021, Additional history exists Influenza Adult (#1) 2025 04/11/2023, 04/03/2022, 01/26/2021, Additional history exists Lipid Panel 03/08/2025 03/08/2024, 0311/2021, 07/26/2020, Additional history exists Hemoglobin A1C 09/19/2025 03/21/2025, 1 08/2024, 09/06/2024, Additional history exists DTaP, Tdap and Td Vaccines (2 - Td or Tdap) 03/31/2027 03/31/2017 Colorectal Cancer Screening Colonoscopy (10 Years) 08/14/2028 08/14/2018 Pneumococcal Vaccine: 50+ Years Completed 02/01/2021, 01/28/2020 PHQ-2 (Physician [place]) Completed 03/21/2025 Hepatitis A Vaccines Aged Out No long er eligible based on patient's age to complete this topic Meningococcal B Vaccine Aged Out No l onger eligible based on patient's age to complete this topic Meningococcal Vaccine Aged Out No ashleigh jj eligible based on patient's age to complete this topic RSV Immunizations Under 20 Months Aged Out No longer eligible based on patient's age to complete this topic Procedures Procedure Name Priority Date/Time Associated Diagnosis Comments URINE ALBUMIN-24 HOUR Routine 03/21/2025 12:19 PM CDT Type 2 diabetes mellitus without complication, with long-term current use of insulin ([facility]) COLLECT.CAPILLARY (FNGR,HEEL,EAR) Routine 03/21/2025 9:03 AM CDT Type 2 diabetes mellitus without complication, with long-term current use of insulin ([facility]) HEMOGLOBIN, GLYCOSYLATED Routine 03/21/2025 Type 2 diabetes mellitus without complication, with long-term current use of insulin ([facility] HHS/HCC) LIPID PANEL Routine 03/08/2024 9:08 AM CDT Type 2 diabetes mellitus without complication, with long-term current use of insulin ([facility] HHS/HCC) COLONOSCOPY GENERIC (SCAN ORDER) 08/14/2018 from Last 3 Months or Most Recently Relevant to Health Maintenance Results * ALBUMIN URINE RANDOM W/CREATININE (03/21/2025 12:19 PM CDT) MICROALBUMIN (U) 2.1 <20 MG/L 03/21/20 7:26 PM CDT [facility] CREATININE RANDOM (U) 40.7 MG/DL 03/21/2025 7:26 PM CDT [facility] ALBUMIN/CREAT RATIO 5.2 <30 MG/G 03/21/2025 7:26 PM CDT [facility] URINE SPECIMEN / Unknown 03/21/2025 12:19 PM CDT Toyin Recinos MD URINE ORDERABLES Final Result [facility] [address] [place] [address], [place] [phone] * A1C (BACK OFFICE) (03/21/2025) HGB A1C 6.9 % [address] [place] 03/21/2025 Toyin Recinos MD LABORATORY Final Result [address] [place] [address] [place] [address], [place] [phone] * LIPID PANEL (03/08/2024 9:08 AM CDT) CHOLESTEROL 134 <200 MG/DL 03/08/2024 6:39 PM CDT [facility] TRIGLY[facility] 44 <150 MG/DL 03/08/2024 6:39 PM CDT [facility] HDL 53 >40 MG/DL 03/08/2024 6:39 PM CDT [facility] LDL-C 72 <100 MG/DL 03/08/2024 6:39 PM CDT [facility] VLDL CALCULATION 9 5 - 28 MG/DL 03/08/2024 6:39 PM CDT [facility] CHOL/HDL RATIO 2.5 0.0 - 4.0 03/08/2024 6:39 PM CDT [facility] LDL/HDL 1.4 0.41 - 2.13 03/08/2024 6:39 PM CDT [facility] NON HDL CHOLESTEROL 81 <140 MG/DL 03/08/2024 6:39 PM CDT [facility] 03/08/2024 9:08 AM CDT us Toyin Recinos MD LABORATORY Final Result [facility] [place] [address] [place] [address], * COLONOSCOPY GENERIC (08/14/2018) 08/14/2018 Narrative 08/14/2018 Ordered by an unspecified provider. us Documents Scanned SCANNING Final Result from Last 3 Months or Most Recently Relevant to Health Maintenance Insurance Care Teams Critical Power Install Technician Relationship Specialty Start Date End Date Jose Arango MD [address] [place] [address] PCP - General FAMILY PRACTICE 03/21/25 Arron Simons MD [facility] [place] [address] CARDIOVASCULAR DISEASE 10/24/16
--- OUTSIDE RECORDS SUMMARY | 2025-04-15 08:01 | XMS_ITS | Encounter Summary ---
Author Organization [facility] Address [address] [place] [address] Care Team Providers Care Tax Economist Name Role Phone Arron Simons MD Unavailable [phone] Eleanor Giron MD Primary Care Provider + Sonia Hong MD Primary Care Provider None, Provider Primary Care Provider Myah Jose Elmore MD Primary Care Provider [phone] Encounter Details Date Type Department Care Team (Late Contact Info) Description 11/07/2016 Abstract [facility] [place] [address] [place] [address] Arron Simons MD [address] [place] [address] Social History Tobacco Use Types Packs/Day Years Used Date Smoking Tobacco: Never Smokeless Tobacco: Never Alcohol Use Standard Drinks/Week Comments Yes 1.7 (1 standard drink = 0.6 oz p ure alcohol) occ.. Sex and Gender Information Value Date Recorded Sex Assigned at Not on file Legal Sex Male 11:10 AM CDT Gender Identity Not on file Sexual Orientation Not on file documented as of this encounter Plan of Treatment Upcoming Encounters Date Type Department Care Team (Late Contact Info) Description 04/25/2025 3:20 PM BASIC ACOUSTIC ANALYST Office Visit [facility] Family & Internal Medicine - [address] [phone] Sonia Hong MD [address] [place] [address] 09/20/2025 8:40 AM CDT Office Visit [facility] Diabetes and Endocrinology - [phone] [place] [phone] Toyin Recinos MD [address] [place], [place] [phone] documented as of this encounter Visit Diagnoses Not on filedocumented in this encounter Additional Health Concerns Infection Onset Date Last Indicated Resolved Time COVID-19 Rule Out 10/29/2020 10/29/2020 10/30/2020 7:20 PM CDT documented as of this encounter Care Teams Tax Economist Relationship Specialty Start Date End Date Eleanor Giron MD [address] [facility] [address] [place] [address] PCP - General FAMILY PRACTICE 11/05/16 06/04/18 Sonia Hong MD [address] [place] [address] PCP - General INTERNAL MEDICINE 06/05/18 01/06/23 None, MD Gurjit PCP - General UNKNOWN PHYSICIAN SPECIALTY 02/11/23 1 Jose Arango MD [address] [place] [address] PCP - General FAMILY PRACTICE 03/21/25 Arron Simons MD [address] [facility] [place] [address] CARDIOVASCULAR DISEASE 10/24/16 documented as of this encounter
--- OUTSIDE RECORDS SUMMARY | 2025-04-15 08:01 | XMS_ITS | Encounter Summary ---
Author Organization [facility] Address [address] [place] [address] Phone Care Team Providers Care Mobile Practice Lead Name Role Phone Sonia Hong MD Primary Care Provider [phone] Reason for Referral * Radiology Services (Routine) - Closed Specialty Diagnoses / Procedures Referred By Phoenix evangelista Referred To Contact Radiology Diagnoses Left knee pain, unspecified chronicity Preoperative testing Osteoarthritis of left knee, unspecified osteoarthritis type Procedures XR CHEST 2 VIEWS Margarito Morgan MD [address] [place] [address] Phone: tel: fax: Referral ID Status Reason Start Date Expiration Date Visits Re quested Visits Authorized [id number] Closed 10/09/2020 1 1 Encounter Details Date Type Department Care Team (Latest Contact Info) Description 10/09/2020 Transcribe Orders [facility] [address] [place] [address] Margarito Morgan MD [address] [place] [address] Left knee pain, unspecified chronicity [...] documented as of this encounter Functional Status documented as of this encounter Mental Status * Question Answer Entry Date Author Weight 3680 10/09/2020 10:44 AM CDT Aleyda Johnson RN documented in this encounter Plan of Treatment Not on file documented as of this encounter Results * (ABNORMAL) Urinalysis Microscopic If Indicated (10/11/2020 10:16 AM CDT) SPECIFIC GRAVITY 1.036(H) 1.003 - 1.035 10/11/2020 12:53 PM [facility] URINE PH 5.5 5.0 - 8.0 10/11/2020 12:53 PM [facility] WBC ESTERASE Negative Negative 10/11/2020 12:53 PM [facility] NITRITE Negative Negative 10/11/2020 12:53 PM [facility] PROTEIN, RANDOM URINE Negative Negative 10/11/2020 12:53 PM [facility] URINE GLUCOSE, QUAL 4+(A) Negative 10/11/2020 12:53 PM [facility] URINE KETONES Negative Negative 10/11/2020 12:53 PM [facility] UROBILINOGEN <2.0 <2.0 mg/dL 10/11/2020 12:53 PM [facility] URINE BILIRUBIN Negative Negative 12:53 PM [facility] URINE BLOOD Negative Negative idalia/ul 10/11/2020 12:53 PM [facility] URINALYSIS COLOR Yellow Yellow 10/12/19 12:53 PM [facility] URINALYSIS CLARITY Clear Clear 10/11/2020 12:53 PM [facility] DMH RENAL EPI CELLS 10/11/2020 12:53 PM CDT [facility] URINE SPERM 10/11/2020 12:53 PM CDT [facility] URINE TRICHOMONAS 10/11/2020 12:53 PM CDT [facility] URINE YEAST 10/11/2020 12:53 PM CDT [facility] Urine URINE SPECIMEN COLLECTION, CLEAN CATCH / Unknown Non-Phlebotomy Collection / Unknown 10/11/2020 10:16 AM CDT 10/11/2020 10:16 AM CDT Margarito Morgan MD URINE ORDERABLES Final Result Performing Organization Address [facility] Co de Phone Number [address] [address] * Protime (PT) (Prothrombin Time) (10/11/2020 10:16 AM CDT) PROTIME-PATIENT 10.5 9.3 - 11.6 sec 10/11/2020 1:14 PM T [facility] Comment: Protime testing is performed using a recombinant human thromboplastin (Innovin) with an KATELYN approximating 1.0. INR 1.0 0.9 - 1.1 10/11/2020 1:14 PM [facility] Comment: Recommended Ranges: Standard oral anticoagulant INR: 2.0 - 3.0 High dose therapy INR: 2.5 - 3.5 Blood Venipuncture / Unknown 10/11/2020 10:16 AM CDT 10/11/2020 10:16 AM CDT Margarito Morgan MD HEMATOLOGY ORDERABLES Final Re sult Performing Organization Address City/[facility]/ZIP Co de Phone Number [address] [address] * (ABNORMAL) Hemoglobin A1C w/ Estimated Glucose (10/11/2020 10:16 AM CDT) HGB-A1C 7.3(H) 3.8 - 5.6 % 10/11/2020 1:22 PM CDT [facility] Blood Venipuncture / Unknown 10/11/2020 10:16 AM CDT 10/11/2020 10:16 AM CDT Narrative [facility] - 10/11/2020 1:22 PM CDT Per ADA recommendations, HbA1c <7% is the goal for glycemic control, >8% suggests additional action needed. ([employer] Dimension Crestline HbA1c method) This assay measures any hemoglobin [...] ORDERABLES Final Res ult Performing Organization Address City/[facility]/ZIP Co de Phone Number [address] [address] * Culture, MRSA Screen (10/11/2020 10:16 AM CDT) CULTURE RESULTS NO MRSA ISOLATED AFTER 1 DAY 10/12/2020 2:25 PM CDT [facility] Culture NASAL STRUCTURE / Unknown Non-Phlebotomy Collection / Unknown 10/11/2020 10:16 AM CDT 10/11/2020 10:16 AM CDT Margarito Morgan MD MICROBIOLOGY - GENERAL ORDERAB LES Final Result Performing Organization Address [facility] Co de Phone Number [address] [address] * (ABNORMAL) CMP (Comprehensive Metabolic Panel) (10/11/2020 10:16 AM CDT) SODIUM 139 133 - 145 mmol/L 10/11/2020 12:54 [facility] POTASSIUM 4.6 3.5 - 5.1 mmol/L 10/11/2020 12:54 PM [facility] CHLORIDE 107 96 - 108 mmol/L 10/11/2020 12:54 PM [facility] CO2, VENOUS 24 21 - 32 mmol/L 10/11/2020 12:54 PM [facility] ANION GAP 12.6 10.0 - 20.0 mmol/L 10/11/2020 12:54 PM [facility] GLUCOSE 124(H) 80 - 115 mg/dL 10/11/2020 12:54 PM [facility] BUN 18 6 - 19 mg/dL 10/11/2020 12:54 PM [facility] CREATININE, BLOOD 0.80 0.50 - 1.30 mg/dL 10/11/2020 12:54 PM [facility] BUN/CREATININE RATIO 23(H) 12 - 20 ratio 10/11/2020 12:54 PM [facility] TOTAL PROTEIN 7.0 6.0 - 8.2 g/dL 10/11/2020 12:54 PM [facility] ALBUMIN 4.1 3.4 - 4.8 g/dL 10/11/2020 12:54 PM [facility] CALCIUM 8.9 8.8 - 10.0 mg/dL 10/11/2020 12:54 PM [facility] T BILI 0.7 0.0 - 1.0 mg/dL 10/11/2020 12:54 PM [facility] SGOT (AST) 20 0 - 37 U/L 10/11/2020 12:54 PM [facility] SGPT (ALT) 37 12 - 55 U/L 10/11/2020 12:54 PM [facility] ALKALINE PHOSPHATASE 70 39 - 117 U/L 10/11/2020 12:54 PM [facility] GFR, EST. NONAFRICAN >60 10/11/2020 12:54 PM [facility] Comment: Reference interval for MDRD GFR: GFR >=60: Satisfactory kidney function GFR <60: Chronic kidney disease GFR <15: Kidney failure Estimated GFR may be less reliable in patients >70yr, women, patients with serious comorbid conditions, or patients with extremes of body size, muscle mass, or nutritional status. Revised 08/19/07 (National Kidney Disease Education Program) GFR, EST. >60 >=60 021 12:54 PM CDT [facility] Comment: Reference interval for MDRD GFR: [...] 10:16 AM CDT 10/11/2020 10:16 AM CDT [facility] - 10/11/2020 12:54 PM CDT Venipuncture should occur prior to sulfasalazine and/or sulfapyridine administration due to the potential for falsely depressed results for ALT and AST. Glucose can be falsely depressed after administration of sulfasalazine, and falsely elevated with administration of sulfapyridine. us Margarito Morgan MD CHEMISTRY ORDERABLES Final Res ult Performing Organization Address City/[facility]/ZIP Co de Phone Number [address] [address] * APTT (PTT) (10/11/2020 10:16 AM CDT) PTT 25 24 - 36 sec 10/11/2020 1:14 PM CDT [facility] Blood Venipuncture / Unknown 10/11/2020 10:16 AM CDT 10/11/2020 10:16 AM CDT Margarito Morgan MD HEMATOLOGY ORDERABLES Final Re sult Performing Organization Address [facility] Co de Phone Number [address] [address] * XR CHEST 2 VIEWS (10/11/2020 10:16 [...] IMPRESSION No acute cardiopulmonary disease. Dictation location [place] Electronically signed by: THIERRY RAMIREZ MD Date [...] IMPRESSION No acute cardiopulmonary disease. Dictation location [place] Electronically signed by: THIERRY RAMIREZ MD Date [...] anticoagulants documented in this encounter Care Teams Mobile Practice Lead Relationship Specialty Start Date End Date Sonia Hong MD [address] [place] [address] PCP - General Geriatric Medicine 07/09/19 documented as of this encounter
--- OUTSIDE RECORDS SUMMARY | 2025-04-15 08:02 | XMS_ITS | Clinical Summary ---
Author Organization [facility] Address [address] [place] [address] Phone Care Team Providers Care Parts Sales Manager Name Role Phone Sonia Hong MD Primary Care Provider [phone] Allergies Active Allergy Reactions Criticality Noted Date [...] this topic Medical Devices Implanted Type Area Side Seam Tender Device Identifier Shelf Expiration Date Model / Serial / Lot Cement Biomet - [id number] Implanted:Qty : 2 on 11/01/[address] [facility] IMPLANT Left: Knee [employer] 01/23/2025 [id number] / / [id number] Triathlon Cr Fem Comp 5510-F-601 - [id number] Implanted:Qty : 1 on 11/01/[address] [facility] IMPLANT Left: Knee [employer] 01/26/2024 [id number] / / [id number] Tri Ts Baseplate Size 6 - [id number] Implanted:Qty : 1 on 11/01/[address] [facility] IMPLANT Left: Knee [employer] 06/07/2025 [id number] / / [id number] Series A Pat Thn 34 3 Peg - [id number] Implanted:Qty : 1 on 11/01/[address] [facility] IMPLANT Left: Knee [employer] / [id number] 03/10/2025 [id number] / / [id number] Triathlon Cs Ins Size6 10mm 0751-N-005-E - [id number] Implanted:Qty : 1 on 11/01/[address] [facility] IMPLANT Left: Knee [employer] 08/17/2025 [id number] / / [id number] Explanted Type Area Side Seam Tender Device Identifier Shelf Expiration Date Model / Serial / Lot Bone Pin 4 X 140mm Sterile (2pk) [id number] - [id number] Explanted:Qty: 1 on 11/01/[address] [facility] IMPLANT Left: Knee [employer] 04/26/2025 [id number] / / [id number] Femoral Tibial Checkpoint Kit [id number] - [id number] Explanted:Qty: 1 on 11/01/[address] [facility] IMPLANT Left: Knee [employer] 04/24/2025 [id number] / / [id number] Law Bone Pin 4 X 110mm (2pk) [id number] - [id number] Explanted:Qty: 1 on 11/01/[address] [facility] IMPLANT Left: Knee [employer] [id number] / / [id number] Insurance MEDICARE C GENERIC Advance Directives Documents on File Type Date Recorded Patient [place] Expl anation Living Will 03/03/2015 7:55 AM LIVING [facility]OLAND[facility] L 03/01/15 * Full Code (Latest Code Status on File) Date Activated Date Inactivated Comments 02/28/2015 9:15 PM 03/02/2015 11:45 PM Full Code: FULL ARREST: Attempt Resuscitation/CPR and use intubation and mechanical ventilation as indicated. PRE-ARREST: Use all measures to stabilize patient. Care Teams Parts Sales Manager Relationship Specialty Start Date End Date Sonia Hong MD [address] [place] [address] PCP - General Geriatric Medicine 07/09/19
== END 2025-04-15 07:56 | disposition home or self-care (01) ==
PROVIDERS: PCP Family Medicine; Visit Provider Family Medicine
DX: R74.01 Elevation of levels of liver transaminase levels (principal); K76.0 Fatty (change of) liver, not elsewhere classified
CPT/HCPCS: 76705